=== PATIENT | female | born 1985 | race Asian ===

== ENCOUNTER 2017-05-28 07:12 | Emergency (ER) | payer BC ==
[~2017-05-28] VITALS: Ht 144.8 cm; Wt 49.9 kg
[~2017-05-28 07:12] MED LIST: NKM
[2017-05-28 07:19] VITALS: BP 113/72
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
--- NOTE | 2017-05-28 08:42 | Diagnostic Imaging Report ---
Indication: Chest pain Technique: XRAY Chest 1v Comparison: None Findings: Heart size and mediastinal contours are within normal limits given technique. There is no focal consolidation, pneumothorax or pleural effusion. Osseous structures demonstrate no acute abnormality. Abdominal shield in place. Impression: No radiographic evidence of acute cardiopulmonary disease.
[2017-05-28 08:56] LABS: APPEARANCE,URINE CLEAR; KETONES,URINE NEGATIVE (NEGATIVE); LEUKOCYTE ESTERASE ,URINE NEGATIVE (NEGATIVE); NITRITE,URINE NEGATIVE (NEGATIVE); PH,URINE 6.5 (4.5-8.0); PROTEIN,URINE NEGATIVE (NEGATIVE); UROBILINOGEN,URINE NORMAL MG/DL (0.0-1.0)
[2017-05-28 08:59] LABS: LYMPHOCYTES % (AUTO) 18.8 % (20.0-45.0); MEAN CORPUSCULAR HEMOGLOBIN 20.9 PG (27.0-31.0); MEAN CORPUSCULAR HGB CONC 31.1 G/DL (32.0-36.0); MEAN CORPUSCULAR VOLUME 67 FL (80-99); MEAN PLATELET VOLUME 7.5 FL (6.5-10.1); MONOCYTES % (AUTO) 6.6 % (1.0-10.0); NEUTROPHILS % (AUTO) 72.6 % (45.0-75.0); PLATELET COUNT 332 K/UL (150-450); RED BLOOD COUNT 6.78 M/UL (4.20-5.40); WHITE BLOOD COUNT 9.1 K/UL (4.8-10.8)
[2017-05-28 09:08] LABS: BACTERIA,URINE FEW /HPF; RBC,URINE 0-2 /HPF (0 - 2); SQUAMOUS EPITHELIAL CELL,UR FEW /LPF (NONE/OCC); WBC,URINE 0-2 /HPF (0 - 2)
[2017-05-28 09:29] LABS: ANION GAP 10 mmol/L (5-15); CALCIUM 9.3 MG/DL (8.5-10.1); CARBON DIOXIDE 25 MMOL/L (21-32); CHLORIDE 104 MMOL/L (98-107); CREATININE 0.6 MG/DL (0.55-1.30); GLOMERULAR FILTRATION RATE > 60 mL/min (>60); POTASSIUM 4.2 MMOL/L (3.5-5.1); SODIUM 139 MMOL/L (136-145)
[2017-05-28 09:33] LABS: ALANINE AMINOTRANSFERASE 24 U/L (12-78); ALBUMIN/GLOBULIN RATIO 0.8 (1.0-2.7); ASPARTATE AMINO TRANSFERASE 35 U/L (15-37); LIPASE 159 U/L (73-393)
[2017-05-28 10:15] VITALS: BP 118/70
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
[2017-05-28 11:40] VITALS: BP 101/71
--- NOTE | 2017-05-29 14:27 | Cardiology Report ---
APPROVED REPORT EKG Measurement Heart [id number] Normal sinus rhythm Nonspecific T wave abnormality Abnormal ECG
== END 2017-05-28 11:54 | disposition home or self-care (01) ==
LOC: EDBD 07:12 → EMR 07:36
DX: Y92.410 Unspecified street and highway as the place of occurrence of the external cause (principal); V43.52XA Car driver injured in collision with other type car in traffic accident, initial encounter; S20.212A Contusion of left front wall of thorax, initial encounter; R10.9 Unspecified abdominal pain
CPT/HCPCS: 36415; 71010; 71260; 74177; 80053; 81003; 81025; 83690; 84484; 85025; 93005; 99284; Q9967